=== PATIENT | female | born 1960 | race Caucasian/White ===

== ENCOUNTER → 2016-10-16 | Outpatient (CLI) | payer SELFPAY ==
--- NOTE | 2016-10-19 06:57 | RAD ---
HISTORY: Back pain, lumbosacral spondylosis Study: AP and lateral lumbar spine with flexion and extension lateral views Comparison: None Findings: There is mild anterolisthesis L5 on S1 which appears to be due to bilateral spondylolysis at L5. Thi s could be confirmed with CT. The alignment is otherwise normal. The alignment is stable in flexion and extension. The vertebral bodies are of average height. Degenerative disc disease is present at L 1-2 L5-S1. The pedicles are intact. The SI joints are normal. IMPRESSION: Stable anterolisthesis L5 on S1, grade 1, likely due to bilateral spondylolysis at L5. This could be further evaluated with CT. Multilevel degenerative disc disease as described above Reported By:
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
== END | disposition home or self-care (01) | DRG 552 ==
LOC: RAD 13:26
PROVIDERS: ATTEND Neurological Surgery
DX: M47.896 Other spondylosis, lumbar region (principal); M51.36 Other intervertebral disc degeneration, lumbar region; M50.322 Other cervical disc degeneration at C5-C6 level; M50.323 Other cervical disc degeneration at C6-C7 level
CPT/HCPCS: 72120; 72125; 72148